=== PATIENT | female | born 1995 | race Caucasian/White ===

== ENCOUNTER 2021-11-13 13:12 | Emergency (ER) | payer OTHER, SELFPAY ==
[2021-11-13 13:15] VITALS: BP 146/73; PULSE 90; RESP 16; TEMP 36.6; O2SAT 97; BMI 19.5
--- NOTE | 2021-11-13 13:25 | ED_ITS ---
HPI - Wound/Laceration General: Chief Complaint: Wound/Laceration Stated Complaint: pad cutter injury left wrist Time Seen by Provider: 11/13/21 13:24 History of Present Illness: 26-year-old female comes in for injury to the left inner wrist. Patient was using a steel box toe inserter to cut some bands all supplies for a outdoor project they were working on. Patient sustained a laceration to her left inner wrist when the steel box toe inserter slipped. Patient appears well. Patient moves extremities well. Tetanus is up-to-date. Review of Systems General: Reports: 10 or more systems reviewed and unremarkable except in HPI and below Musc: Reports: extremity pain Skin/Breast: Reports: new lesions [facility] ED Female Reproductive History: Date of last menstrual period: 10/24/21 Physical Exam Const: COMMON NORMALS: alert HENMT: COMMON NORMALS: normocephalic HEAD & SCALP: normocephalic Neck/C-Spine: COMMON NORMALS: full ROM Resp: COMMON NORMALS: normal respiratory effort and clear to auscultation bilaterally AUSCULTATION: clear to auscultation bilaterally Cardio: COMMON NORMALS: regular rate and regular rhythm RATE: regular rate RHYTHM: regular rhythm Extremity: LEFT UPPER EXTREMITY: Yes wrist (2 cm laceration to the left inner wrist. Normal range of motion) Left wrist: Yes inspection, Yes palpation and Yes ROM Neuro: SENSORIUM/ORIENTATION: Yes alert Skin: TRAUMA: laceration (Linear laceration left inner wrist with fat exposure) linear Procedures Laceration Laceration 1: Site: upper extremity Side (If applicable): left Size (cm): 2 Description: linear Depth: simple, single layer Local Anesthetic: lidocaine 1% and with epi Amount of anesthesia used (mL): 2 Pre-repair: wound explored and irrigated extensively Skin layer closed with: vicryl Size (cm): 4-0 Number of sutures: 3 Technique: simple, interrupted Course Vital Signs: Vital signs: Vital Signs Temperature 97.9 F 11/13/21 13:15 Pulse Rate 90 11/13/21 13:15 Respiratory Rate 16 11/13/21 13:15 Blood Pressure 146/73 11/13/21 13:15 Pulse Oximetry 97 11/13/21 13:15 Oxygen Delivery Me thod 11/13/21 13:15 MDM - Wound/Laceration Medical Decision Making 26-year-old female comes in today with injury to the left hand and wrist. On exam there is a 2 cm laceration. No tendon injury, no foreign body. Differential diagnosis includes laceration, fracture, tendon injury, foreign body. Reviewed exam with patient recommended closure with sutures. Patient reported understanding agreed to plan. Wound was closed without difficulty. Patient tolerated well. Reviewed postprocedure care and instructions to patient who reported understanding. Discharge Plan Discharge Patient Disposition: Home Clinical Impression: Laceration of wrist, left Qualifiers: Encounter type: initial encounter Qualified Code(s): S61.512A - Laceration without foreign body of left wrist, initial encounter Condition: Stable Discharge Orders: Discharge ED (Routine); Ordered 11/13/21 Ordered By: Zi Carballo Discharge Diet: Usual diet Discharge Activity: Increase activity as tolerated Patient Instructions: Laceration (ED) Activity Restrictions/Additional Instructions: Keep wound clean and dry. It is very important to keep the wound as dry as possible for the next 48 hours. Monitor site for signs of infection such as increasing redness greater than 2 cm around the wound, fever, worsening pain. Sutures need to come out in 7 days. Follow-up with primary care or return to the ER for suture removal. Coding Level of Care Code ED Release Of Information Clerk for [place]
[2021-11-13 13:56] VITALS: BP 122/74; PULSE 70; RESP 14; TEMP 36.6; O2SAT 98
== END 2021-11-13 13:59 | disposition home or self-care (01) ==
PROVIDERS: Emergency Provider Nurse Practitioner Family
DX: S61.512A Laceration without foreign body of left wrist, initial encounter (principal); W26.0XXA Contact with knife, initial encounter
CPT/HCPCS: 12001; 99282